=== PATIENT | male | born 1975 | race Caucasian/White ===

== ENCOUNTER 2020-11-18 14:28 | Emergency (ER) | payer OTHER, BC, SELFPAY ==
[2020-11-18 15:13] VITALS: BP 145/94; PULSE 89; RESP 18; TEMP 37; O2SAT 98; BMI 28.1
== END 2020-11-18 17:46 | disposition left against medical advice (07) ==
PROVIDERS: Emergency Provider Emergency Medicine; PCP Family Medicine
DX: R51.9 Headache, unspecified (principal)
CPT/HCPCS: 99281

== ENCOUNTER → 2024-12-02 09:10 | Outpatient (CLI) | payer OTHER, SELFPAY ==
--- NOTE | 2024-12-02 09:15 | DI.CT.S_ITS ---
PROCEDURE: CT SOFT TISSUE NECK W CON INDICATIONS: Hoarseness TECHNIQUE: After the administration of intravenous contrast, 3.0 mm axial sections acquired from the sella to the aortic arch. Additional oblique axial 3.0 mm sections acquired through the pharynx. 3 mm thick coronal and sagittal reformats were generated. For radiation dose reduction, the following was used: automated exposure control. COMPARISON: None. FINDINGS: Image quality: There is streak artifact seen through the level of the shoulders. Lymph nodes: No enlarged lymph nodes seen throughout the neck. Vessels: Visualized vasculature appears patent. Neck spaces: The oropharynx, nasopharynx, and pharynx demonstrate no mucosal lesions. The vocal cords, false vocal cords, pyriform sinuses, epiglottis, vallecula, and tongue base all appear normal. Extramucosal spaces appear unremarkable. Glands: The parotid and submandibular glands appear normal. Thyroid gland demonstrates no significant abnormality. Miscellaneous: Visualized brain and orbits appear normal. Lung apices appear clear. Superficial soft tissues appear normal. Bones: No suspicious bony lesions. Visualized sinuses and mastoids appear unremarkable. Mild lower cervical spine degenerative changes are seen. IMPRESSION: No imaging explanation is found for this patient's presenting symptoms. There is no significant abnormalities can be seen of the vocal cords. No masses or abnormal enhancement can be seen. No enlarged lymph nodes can be seen. Dictated by: Guero Gaytan M.D. on 12/02/2024 at 13:57 Approved by: Guero Gaytan M.D. on 12/02/2024 at 13:58
== END ==
PROVIDERS: PCP Family Medicine; Referring Provider Otolaryngology; Visit Provider Otolaryngology
DX: R49.0 Dysphonia (principal); J37.0 Chronic laryngitis; M54.2 Cervicalgia; R13.10 Dysphagia, unspecified; R59.0 Localized enlarged lymph nodes
CPT/HCPCS: 70491; Q9967